=== PATIENT | female | born 1970 | race Caucasian/White ===

== ENCOUNTER 2020-11-15 20:09 | Emergency (ER) | payer MEDICARE, OTHER ==
[~2020-11-15 20:09] MED LIST: ANUSOL-HC25 MG PR; CELEXA 20MG TAB20 MG PO; COREG 12.5MG12.5 MG PO; DOXYCYCLINE MO100 MG PO; ECOTRIN81 MG PO; LISINOPRIL20 MG PO; NORCO 5-325 TA1 EACH PO; OMEPRAZOLE20 MG PO; PANTOPRAZOLE SO40 MG PO; PERCOCET 5/325 T1 EA PO; PRAZOSIN HCL1 MG PO; QUETIAPINE FUMA50 MG PO; SIMVASTATIN20 MG PO; VISTARIL 50 MG50 MG PO; Voltaren Gel 1 % TOP; ZITHROMAX250 MG PO
[2020-12-28] MEDS ORDERED: VENTOLIN HFA 66.7 GM INH (09:30)
[2020-12-28] MEDS ORDERED: METHOCARBAMOL500 MG PO (09:31)
[2020-12-28] MEDS ORDERED: CELEBREX200 MG PO (09:32)
[2020-12-28] MEDS ORDERED: FLUOXETINE HCL20 M1 PO (09:34)
[2020-12-28] MEDS ORDERED: DICYCLOMINE PO (09:34)
[2020-12-28] MEDS ORDERED: TOPROL XL 25 MG25 MG PO (09:35)
[2020-12-28] MEDS ORDERED: CYCLOBENZAPRINE10 MG PO (09:36)
[2020-12-28] MEDS ORDERED: CENTANY30 GM TP (09:37)
[2020-12-28] MEDS ORDERED: ZESTRIL20 MG PO (09:38)
[2020-12-28] MEDS ORDERED: PROTOPIC60 GM TP (09:38)
[2020-12-28] MEDS ORDERED: WAL-PROFEN200 M1 PO (09:39)
[2020-12-28] MEDS ORDERED: COREG12.5 MG PO (09:39)
[2020-12-28] MEDS ORDERED: HYDROCODON-ACE1 EAC2 PO (12:26)
[2020-12-28] MEDS ORDERED: NAPROXEN250 MG PO (13:22)
[2020-12-28] MEDS ORDERED: ZOFRAN4 MG PO (13:23)
== END 2020-11-15 23:11 | disposition left against medical advice (07) ==
LOC: ER1 20:09
DX: M54.9 Dorsalgia, unspecified (principal); Z53.21 Procedure and treatment not carried out due to patient leaving prior to being seen by health care provider

== ENCOUNTER → 2020-12-23 | Outpatient (CLI) | payer MEDICARE, OTHER ==
[~2020-12-23] MED LIST changes: +CELEBREX200 MG PO; +CENTANY30 GM TP; +COREG12.5 MG PO; +CYCLOBENZAPRINE10 MG PO; +DICYCLOMINE PO; +FLUOXETINE HCL20 M1 PO; +HYDROCODON-ACE1 EAC2 PO; +METHOCARBAMOL500 MG PO; +NAPROXEN250 MG PO; +PROTOPIC60 GM TP; +TOPROL XL 25 MG25 MG PO; +VENTOLIN HFA 66.7 GM INH; +WAL-PROFEN200 M1 PO; +ZESTRIL20 MG PO; +ZOFRAN4 MG PO
[2020-12-23 11:43] LABS: HEMOGLOBIN 13.9 gm/dl (12.3-15.3); RED BLOOD COUNT 4.6 M/UL (4.00-5.10); WHITE BLOOD COUNT 14.5 K/UL (4.5-11.0)
== END ==
LOC: OPSV2 12-21 10:30
PROVIDERS: Obstetrics & Gynecology
DX: Z01.818 Encounter for other preprocedural examination (principal); D39.10 Neoplasm of uncertain behavior of unspecified ovary; R91.8 Other nonspecific abnormal finding of lung field
CPT/HCPCS: 36415; 71046; 81001; 85025; 93005

== ENCOUNTER → 2020-12-28 | Day surgery (SDC) | payer MEDICARE, OTHER | END | disposition home or self-care (01) | LOC: OR 07:45 | DX: D27.1 Benign neoplasm of left ovary (principal); K66.0 Peritoneal adhesions (postprocedural) (postinfection); K21.9 Gastro-esophageal reflux disease without esophagitis; F32.9 Major depressive disorder, single episode, unspecified; I10 Essential (primary) hypertension; E78.5 Hyperlipidemia, unspecified; J44.9 Chronic obstructive pulmonary disease, unspecified; F17.210 Nicotine dependence, cigarettes, uncomplicated; F41.9 Anxiety disorder, unspecified; Z88.0 Allergy status to penicillin; Z79.82 Long term (current) use of aspirin; Z79.899 Other long term (current) drug therapy | CPT/HCPCS: J1100; J1580; J2001; J2250; J2405; J2704; J2795; J3010; J7120 ==